=== PATIENT | male | born 1945 | race Caucasian/White ===

== ENCOUNTER 2020-08-13 09:52 | Emergency (ER) | payer MEDICARE, SELFPAY ==
--- NOTE | ~2020-08-13 | XR_ITS ---
EXAMINATION: XR foot RT 2V EXAM DATE: 08/13/2020 10:31 INDICATION: Initial encounter following injury, with pain of the right foot. Heavy object fell on it 2 days ago. Bruising 3rd and 4th digits. TECHNIQUE: Frontal and lateral projections of the right foot. There is no prior study for compariso n. FINDINGS: There are no acute right foot fractures or dislocations identified. There is no subcutaneo us gas. The soft tissue is unremarkable. There are no radiopaque foreign bodies. IMPRESSION: 1. XR foot RT 2V exam without acute osseous findings. Reviewed, dictated and finalized at location A. RGIST/PEDIATRIC PULMONOLOGIST
[2020-08-13 10:05] VITALS: BP 147/87; PULSE 62; RESP 16; TEMP 36.4; O2SAT 95
--- NOTE | 2020-08-13 10:10 | PC.NURSE ---
10:10 - UPON EXAM, ERP AWARE OF PCN REACTION WHEN PATIENT WAS 9 YEARS OLD WELL A FAMILY MEMBER THAT HAD ALLERGY
[2020-08-13] MEDS: ACETAMINOPHEN 500 MG TABLET 1000 MG PO (10:30)
[2020-08-13 10:41] LABS: Basophils Absolute Auto 0.05 K/mm3 (0.00-0.10); Basophils Percent Auto 0.7 % (0.0-1.0); Eosinophils Absolute Auto 0.28 K/mm3 (0.02-0.50); Eosinophils Percent Auto 3.9 % (1.0-6.0); Hematocrit 36.7 % (37.0-46.0); Hemoglobin 12.6 g/dL (12.4-15.3); Immature Granulocyte Absolute 0.03 K/mm3 (0.00-0.00); Immature Granulocyte Percent A 0.4 % (0.0-0.0); Lymphocytes Absolute Auto 1.21 K/mm3 (1.10-4.50); Lymphocytes Percent Auto 16.7 % (18.0-42.0); Mean Corpuscular HGB Conc 34.3 g/dL (32.0-36.0); Mean Corpuscular Hemoglobin 30.6 pg (27.0-31.0); Mean Corpuscular Volume 89.1 fL (78.0-102.0); Mean Platelet Volume 9.5 fl (8.7-11.0); Monocytes Absolute Auto 0.46 K/mm3 (0.10-0.90); Monocytes Percent Auto 6.3 % (2.0-11.0); Neutrophils Absolute Auto 5.2 K/mm3 (1.7-7.2); Platelet Count Result 257 K/mm3 (150-420); Red Blood Count 4.12 M/mm3 (4.70-6.10); Red Cell Distribution Width 13.1 % (11.6-14.4); White Blood Count 7.3 K/mm3 (4.8-10.8)
[2020-08-13] MEDS: TETANUS,DIPHTHERIA,AC PERTUSSIS ADULT 0.5 ML (ADACEL) IM (10:47)
--- NOTE | 2020-08-13 10:47 | ED.LOWEXIN ---
HPI - Extremity Injury (Lower) General Chief Complaint: Extremity Injury, Lower Stated Complaint: smashed two middle toes on R foot Source: patient Mode of arrival: ambulatory Limitations: no limitations History of Present Illness HPI Narrative: this is a 74-year-old gentleman with a history of diabetes, that had boards that fell and directly hit his right foot mainly in his 2nd and 3rd toe causing abrasion bruising and hematoma to the right 2nd and 3rd toe has good range of motion although those limited secondary to some swelling and pain. This occurred approximately 2 days ago, currently there is a good right pedal pulse is there is no swelling in the lower extremity although there is some swelling in his 2nd and 3rd toe on the right with no fever chills no chest pain no shortness of breath no nausea vomiting. MD complaint: foot injury Onset (ago): day(s) Injury: Right: foot ( wounds and bruising) Type of Injury: blunt Place: home Severity: mild Severity scale (1-10): 2 Relieving factors: nothing Exacerbating factors: movement Context: direct blow Related Data Home Medications Medication Instructions Recorded Confirmed amlodipine 10 mg PO DAILY 08/13/20 08/13/20 atorvastatin 80 mg PO DAILY 08/13/20 08/13/20 clopidogrel 75 mg PO DAILY 08/13/20 08/13/20 glimepiride 4 mg PO BID 08/13/20 08/13/20 liraglutide [[employer] 3-Genaro] 0.6 mg SUBCUT DAILY 08/13/20 08/13/20 metformin 1,000 mg PO BID 08/13/20 08/13/20 metoprolol tartrate 100 mg PO DAILY 08/13/20 08/13/20 Allergies Allergy/AdvReac Type Severity Reaction Status Date / Time Penicillins Allergy Itching Verified 08/13/20 10:57 Review of Systems Review of Systems: All systems reviewed & are unremarkable except as noted in HPI and below PMFSH Past Medical History Medical History HTN (hypertension) Peripheral vascular disease Exam Const: General: no acute distress Orientation/consciousness: patient oriented x3 HENMT: Head: normal to inspection Eyes: Conjunctivae: conjunctivae normal Pupils: Equal, round and reactive pupils present EOM: EOMs intact bilaterally Direct Ophthalmoscopy: no photophobia Neck: Neck: normal visual inspection, no lymphadenopathy and no meningeal signs Chest: Chest palpation & inspection: normal inspection of the chest Resp: Effort & Inspection: normal respiratory effort Cardio: Rate: regular rate Rhythm: regular rhythm GI: GI Palp: Yes Soft to palpation Skin: Other: abrasions to anterior right 2nd and 3rd toe with hematoma and bruising with some swelling has a good brisk pedal pulse on the right Neuro: General: patient oriented x3 and moves all extremities Extrem: General: normal to inspection and no pedal edema Psych: Mental Status: mental status grossly normal Course Course Emergency Course: x-rays reviewed with patient showed no fractures will give the patient a dose of IV 1 g of Rocephin and triple antibiotic ointment patient otherwise doing well not complaining of any pain or any discomfort in his lower extremity. Vital Signs Vital signs: Vital Signs Temperature 36.4 C 08/13/20 10:05 Pulse Rate 62 08/13/20 10:05 Respiratory Rate 16 08/13/20 10:05 Blood Pressure 147/87 H 08/13/20 10:05 Pulse Oximetry 95 08/13/20 10:05 Temperature 36.4 C 08/13/20 10:05 Pulse Rate 62 08/13/20 10:05 Respiratory Rate 16 08/13/20 10:05 Blood Pressure 147/87 H 08/13/20 10:05 Pulse Oximetry 95 08/13/20 10:05 MDM - Extremity Injury (Lower) Lab Data Result diagrams: 08/13/20 10:17 08/13/20 10:17 Labs: Lab Results 08/13/20 08/13/20 08/13/20 Range/Units 10:17 10:17 10:36 WBC 7.3 (4.8-10.8) K/mm3 RBC 4.12 L (4.70-6.10) M/mm3 Hgb 12.6 (12.4-15.3) g/dL Hct 36.7 L (37.0-46.0) % MCV 89.1 (78.0-102.0) fL MCH 30.6 (27.0-31.0) pg MCHC 34.3 (32.0-36.0) g/dL RDW 13.1 (11.6-14.
[2020-08-13] MEDS: NEOMYCIN/POLYMYXIN/BACITRACIN OINTMENT PACKET 1 PACKET TOPICAL (10:52)
[2020-08-13 11:01] LABS: Lactic Acid Reflex 1.3 mmol/L (0.4-2.0)
[2020-08-13 11:07] LABS: Alanine Aminotransferase 18 U/L (16-63); Albumin Level 3.8 g/dL (3.4-5.0); Alkaline Phosphatase 77 U/L (46-116); Anion Gap 9 mmol/L (8-16); Aspartate Amino Transferase 13 U/L (15-37); Bilirubin,Total 0.6 mg/dL (0.00-1.00); Blood Urea Nitrogen 24 mg/dL (7-18); Calcium 9.1 mg/dL (8.5-10.1); Carbon Dioxide 30 mmol/L (21-32); Chloride 98 mmol/L (98-108); Estimated Glomerular Filt Rate 41; Glucose 228 mg/dL (70-99); Osmolality Calculated 295 mOsm/kg (285-295); Sodium 137 mmol/L (136-145); Total Protein 7.1 g/dL (6.4-8.2)
[2020-08-13 11:20] VITALS: RESP 16
== END 2020-08-13 11:20 | disposition home or self-care (01) ==
PROVIDERS: Emergency Provider Emergency Medicine
DX: L03.115 Cellulitis of right lower limb (principal); I10 Essential (primary) hypertension; I73.9 Peripheral vascular disease, unspecified
CPT/HCPCS: 36415; 73620; 80053; 83605; 85025; 87040; 90471; 90715; 96365; 99283; 99284; J0696

== ENCOUNTER 2022-03-26 11:36 | Outpatient (CLI) | payer MEDICARE, SELFPAY ==
[2022-03-26 11:51] LABS: Basophils Absolute Auto 0.05 K/mm3 (0.00-0.10); Basophils Percent Auto 0.6 % (0.0-1.0); Eosinophils Percent Auto 2.4 % (1.0-6.0); Hematocrit 36.7 % (37.0-46.0); Hemoglobin 12.4 g/dL (12.4-15.3); Immature Granulocyte Absolute 0.08 K/mm3 (0.00-0.00); Immature Granulocyte Percent A 0.9 % (0.0-0.0); Lymphocytes Absolute Auto 0.95 K/mm3 (1.10-4.50); Lymphocytes Percent Auto 11.2 % (18.0-42.0); Mean Corpuscular HGB Conc 33.8 g/dL (32.0-36.0); Mean Corpuscular Hemoglobin 31.2 pg (27.0-31.0); Mean Corpuscular Volume 92.2 fL (78.0-102.0); Mean Platelet Volume 9.7 fl (8.7-11.0); Monocytes Absolute Auto 0.46 K/mm3 (0.10-0.90); Monocytes Percent Auto 5.4 % (2.0-11.0); Neutrophils Absolute Auto 6.7 K/mm3 (1.7-7.2); Neutrophils Percent Auto 79.5 % (50.0-70.0); Platelet Count Result 225 K/mm3 (150-420); Red Blood Count 3.98 M/mm3 (4.70-6.10); Red Cell Distribution Width 12.7 % (11.6-14.4); White Blood Count 8.5 K/mm3 (4.8-10.8)
[2022-03-26 12:06] LABS: Creatinine Urine 101.51 mg/dL (40-278); MALB Creatinine Ratio 19.3 mg/g (0-30); Microalbumin Urine Random 19.6 mg/L
[2022-03-26 12:53] LABS: Albumin Level 3.7 g/dL (3.4-5.0); Anion Gap 11 mmol/L (8-16); Blood Urea Nitrogen 41 mg/dL (7-18); Calcium 9.1 mg/dL (8.5-10.1); Carbon Dioxide 29 mmol/L (21-32); Chloride 97 mmol/L (98-108); Estimated Glomerular Filt Rate 32; Osmolality Calculated 312 mOsm/kg (285-295); Phosphorus 4.6 mg/dL (2.6-4.7); Potassium 4.2 mmol/L (3.5-5.1); Sodium 137 mmol/L (136-145)
[2022-03-26 13:06] LABS: Glucose 415 mg/dL (70-99)
== END 2022-03-26 11:37 | disposition home or self-care (01) ==
LOC: CHSLAB 11:40
PROVIDERS: PCP Family Medicine; Visit Provider Internal Medicine Nephrology
DX: N18.30 Chronic kidney disease, stage 3 unspecified (principal)
CPT/HCPCS: 36415; 80069; 82043; 85025

== ENCOUNTER 2022-04-27 09:57 | Outpatient (CLI) | payer MEDICARE, SELFPAY ==
[2022-04-27 10:10] LABS: Basophils Absolute Auto 0.06 K/mm3 (0.00-0.10); Basophils Percent Auto 0.7 % (0.0-1.0); Eosinophils Percent Auto 3.6 % (1.0-6.0); Hematocrit 35.7 % (37.0-46.0); Immature Granulocyte Absolute 0.07 K/mm3 (0.00-0.00); Immature Granulocyte Percent A 0.8 % (0.0-0.0); Lymphocytes Absolute Auto 1.14 K/mm3 (1.10-4.50); Lymphocytes Percent Auto 13.6 % (18.0-42.0); Mean Corpuscular HGB Conc 33.6 g/dL (32.0-36.0); Mean Corpuscular Hemoglobin 31.3 pg (27.0-31.0); Mean Corpuscular Volume 93.2 fL (78.0-102.0); Mean Platelet Volume 9.3 fl (8.7-11.0); Monocytes Percent Auto 7.2 % (2.0-11.0); Neutrophils Absolute Auto 6.2 K/mm3 (1.7-7.2); Neutrophils Percent Auto 74.1 % (50.0-70.0); Platelet Count Result 285 K/mm3 (150-420); Red Blood Count 3.83 M/mm3 (4.70-6.10); Red Cell Distribution Width 13.3 % (11.6-14.4); White Blood Count 8.4 K/mm3 (4.8-10.8)
[2022-04-27 10:18] LABS: Creatinine Urine 105.01 mg/dL (40-278); MALB Creatinine Ratio 12.3 mg/g (0-30); Microalbumin Urine Random < 13.0 mg/L
[2022-04-27 10:49] LABS: Albumin Level 3.5 g/dL (3.4-5.0); Anion Gap 8 mmol/L (8-16); Blood Urea Nitrogen 49 mg/dL (7-18); Calcium 8.8 mg/dL (8.5-10.1); Carbon Dioxide 30 mmol/L (21-32); Chloride 102 mmol/L (98-108); Estimated Glomerular Filt Rate 31; Glucose 208 mg/dL (70-99); Osmolality Calculated 309 mOsm/kg (285-295); Phosphorus 5.2 mg/dL (2.6-4.7); Potassium 3.9 mmol/L (3.5-5.1); Sodium 140 mmol/L (136-145)
== END 2022-04-27 09:58 | disposition home or self-care (01) ==
LOC: CHSLAB 09:59
PROVIDERS: PCP Family Medicine; Visit Provider Internal Medicine Nephrology
DX: N18.30 Chronic kidney disease, stage 3 unspecified (principal)
CPT/HCPCS: 36415; 80069; 82043; 85025

== ENCOUNTER 2022-09-23 14:46 | Emergency (ER) | payer MEDICARE, SELFPAY ==
[2022-09-23 14:49] VITALS: BP 159/64; PULSE 76; RESP 18; TEMP 37.1; O2SAT 100
--- NOTE | 2022-09-23 14:53 | ED.GENADULT ---
HPI - General Adult General Chief complaint: Upper Respiratory Infection Stated complaint: upper resp Time Seen by Provider: 09/23/22 14:48 History of Present Illness HPI narrative: Ady is a 76M with a PMH of PAD, DMII, and HTN that presented to the ED with a couple days of a sore throat, and fatigue. No fevers, chills, N/V, CP or dyspnea. Related Data Home Medications Medication Instructions Recorded Confirmed amlodipine 10 mg tablet 5 mg PO DAILY 08/13/20 09/23/22 atorvastatin 80 mg tablet 80 mg PO DAILY 08/13/20 09/23/22 clopidogrel 75 mg tablet 75 mg PO DAILY 08/13/20 09/23/22 glimepiride 4 mg tablet 4 mg PO BID 08/13/20 09/23/22 liraglutide 0.6 mg/0.1 mL (18 mg/3 1.8 mg subcut DAILY 08/13/20 09/23/22 mL) subcutaneous pen injector ([employer] 3-Genaro) metoprolol tartrate 100 mg tablet 100 mg PO DAILY 08/13/20 09/23/22 albuterol sulfate 90 mcg/actuation 2 inh inhalation QID PRN sob 09/23/22 09/23/22 aerosol inhaler finasteride 5 mg tablet 5 mg PO DAILY 09/23/22 09/23/22 furosemide 20 mg tablet 20 mg PO DAILY 09/23/22 09/23/22 losartan 25 mg tablet 25 mg PO DAILY 09/23/22 09/23/22 Allergies Allergy/AdvReac Type Severity Reaction Status Date / Time lisinopril Allergy Cough Verified 09/23/22 14:59 Penicillins Allergy Itching Verified 09/23/22 14:59 Review of Systems Review of Systems: All systems reviewed & are unremarkable except as noted in HPI and below PMFSH Past Medical History Medical History HTN (hypertension) Peripheral vascular disease Exam Const: General: healthy appearing and no acute distress Nutritional Appearance: well nourished Orientation/consciousness: patient oriented x3 HENMT: Head: normal to inspection Ears: external ears normal Face/Nose/Sinus: Normal external nose present Eyes: Conjunctivae: conjunctivae normal Pupils: Equal, round and reactive pupils present EOM: EOMs intact bilaterally Neck: Neck: normal visual inspection Chest: Chest palpation & inspection: normal inspection of the chest Resp: Effort & Inspection: normal respiratory effort Auscultation: clear to auscultation bilaterally Cardio: Rate: regular rate Rhythm: regular rhythm Heart sounds: no murmurs GI: Inspection: non-distended GI Palp: Yes Soft to palpation and No Tenderness to palpation present (GI) Back/Spine/Pelvis: Back: no CVA tenderness Skin: General skin exam: normal color Rashes: no rashes Neuro: General: patient oriented x3 and moves all extremities Cranial nerves: Yes Nystagmus not present Speech: normal speech Extrem: General: normal to inspection Psych: Mental Status: mental status grossly normal Course Course Emergency Course: +COVID Vital Signs Vital signs: Vital Signs Temperature 98.7 F 09/23/22 14:49 Pulse Rate 76 09/23/22 14:49 Respiratory Rate 18 09/23/22 14:49 Blood Pressure 159/64 H 09/23/22 14:49 Pulse Oximetry 100 09/23/22 14:49 Oxygen Delivery Room Air 09/23/22 14:49 Temperature 98.7 F 09/23/22 14:49 Pulse Rate 76 09/23/22 14:49 Respiratory Rate 18 09/23/22 14:49 Blood Pressure 159/64 H 09/23/22 14:49 Pulse Oximetry 98 09/23/22 14:57 Oxygen Delivery Room Air 09/23/22 14:57 Medical Decision Making Vital Signs Vital Signs: Vital Signs Temperature 98.7 F 09/23/22 14:49 Pulse Rate 76 09/23/22 14:49 Respiratory Rate 18 09/23/22 14:49 Blood Pressure 159/64 H 09/23/22 14:49 Pulse Oximetry 100 09/23/22 14:49 Oxygen Delivery Room Air 09/23/22 14:49 Temperature 98.7 F 09/23/22 14:49 Pulse Rate 76 09/23/22 14:49 Respiratory Rate 18 09/23/22 14:49 Blood Pressure 159/64 H 09/23/22 14:49 Pulse Oximetry 98 09/23/22 14:57 Oxygen Delivery Room Air 09/23/22 14:57 Lab Data Labs: Lab Results 09/23/22 09/23/22 Range/Units 14:49 14:49 Influenza A (RT-PCR) Negative (Negative) Influenza B (RT-PCR) Negative
[2022-09-23 14:57] VITALS: O2SAT 98
[2022-09-23 15:38] LABS: Strep Group A RT-PCR Not Detected (Negative)
[2022-09-23 15:52] LABS: Influenza A QL RT-PCR Negative (Negative); Influenza B QL RT-PCR Negative (Negative); SARS-CoV-2 RNA PCR Positive (Negative)
[2022-09-23 15:53] LABS: RSV RNA, RT-PCR Negative (Negative)
[2022-09-23 16:01] VITALS: BP 177/67; PULSE 78; RESP 20; TEMP 36.8; O2SAT 96
== END 2022-09-23 16:06 | disposition home or self-care (01) ==
PROVIDERS: Emergency Provider Family Medicine; PCP Family Medicine
DX: U07.1 COVID-19 (principal); E11.9 Type 2 diabetes mellitus without complications; I10 Essential (primary) hypertension
CPT/HCPCS: 87637; 87651; 99283

== ENCOUNTER 2022-12-26 17:52 | Outpatient (CLI) | payer MEDICARE, SELFPAY ==
[2022-12-26 18:04] LABS: Basophils Absolute Auto 0.06 K/mm3 (0.00-0.10); Basophils Percent Auto 0.8 % (0.0-1.0); Eosinophils Absolute Auto 0.26 K/mm3 (0.02-0.50); Eosinophils Percent Auto 3.5 % (1.0-6.0); Hematocrit 41.2 % (37.0-46.0); Hemoglobin 13.8 g/dL (12.4-15.3); Immature Granulocyte Absolute 0.01 K/mm3 (0.00-0.00); Immature Granulocyte Percent A 0.1 % (0.0-0.0); Lymphocytes Absolute Auto 1.52 K/mm3 (1.10-4.50); Lymphocytes Percent Auto 20.2 % (18.0-42.0); Mean Corpuscular HGB Conc 33.5 g/dL (32.0-36.0); Mean Corpuscular Hemoglobin 31.1 pg (27.0-31.0); Mean Corpuscular Volume 92.8 fL (78.0-102.0); Mean Platelet Volume 9.3 fl (8.7-11.0); Monocytes Absolute Auto 0.43 K/mm3 (0.10-0.90); Monocytes Percent Auto 5.7 % (2.0-11.0); Neutrophils Absolute Auto 5.2 K/mm3 (1.7-7.2); Neutrophils Percent Auto 69.7 % (50.0-70.0); Platelet Count Result 238 K/mm3 (150-420); Red Blood Count 4.44 M/mm3 (4.70-6.10); Red Cell Distribution Width 13.3 % (11.6-14.4); White Blood Count 7.5 K/mm3 (4.8-10.8)
[2022-12-26 18:14] LABS: Creatinine Urine 24.93 mg/dL (40-278); MALB Creatinine Ratio 52.1 mg/g (0-30); Microalbumin Urine Random < 13.0 mg/L
[2022-12-26 18:57] LABS: Anion Gap 12 mmol/L (8-16); Blood Urea Nitrogen 44 mg/dL (7-18); Carbon Dioxide 27 mmol/L (21-32); Chloride 102 mmol/L (98-108); Estimated Glomerular Filt Rate 42; Glucose 154 mg/dL (70-99); Osmolality Calculated 306 mOsm/kg (285-295); Phosphorus 4.2 mg/dL (2.6-4.7); Potassium 3.7 mmol/L (3.5-5.1); Sodium 141 mmol/L (136-145)
== END 2022-12-26 17:53 | disposition home or self-care (01) ==
LOC: CHSLAB 17:55
PROVIDERS: PCP Family Medicine
DX: N18.30 Chronic kidney disease, stage 3 unspecified (principal)
CPT/HCPCS: 36415; 80069; 82043; 85025

== ENCOUNTER 2024-05-15 13:18 | Outpatient (CLI) | payer MEDICARE, SELFPAY ==
--- NOTE | ~2024-05-15 | PE_ITS ---
EXAMINATION: PET_PETPSMAST_PT DATE: 05/15/2024 15:34 INDICATION: Malignant neoplasm of prostate. TECHNIQUE: 5.092 mCi of Ga-68 gozetotide was administered intravenously. Low dose computed tomography (CT) images were acquired from the base of the brain to the proximal thighs for attenuation correcti on and anatomic localization. Automated exposure control was employed. Dose-length product (DLP) was 905 mGy-cm. Positron emission tomography (PET) images were acquired in the same distribution. COMPARISON: None FINDINGS: Head/neck: There are no pathologically enlarged lymph nodes. Chest: There is mild emphysema. There is mild atelectasis bilaterally. No pleural effusion. There is a calcified pleural plaque on the left. The heart size is normal. There are coronary artery calcifica tions. There are changes of coronary artery bypass grafting. No pericardial effusion. There is mild b ilateral gynecomastia. Abdomen/pelvis/proximal thighs: The liver, gallbladder, spleen, and pancreas are normal. There are ma sses in the adrenal glands measuring up to 17 mm on the left measuring low attenuation, likely adenom as. The kidneys are normal. The prostate is mildly enlarged. There is increased activity in the prost ate with maximum SUV of 13.7. There is diffuse bladder wall thickening, likely secondary to chronic o utlet obstruction. There are no dilated loops of bowel. There is a large volume of stool in the colon . There is calcified atherosclerosis of the aorta and many of the other arteries. There is a stent in right superficial femoral artery. There is a stent in left common and external iliac arteries. There are no pathologically enlarged lymph nodes. There is no free intraperitoneal fluid. There is a large left hydrocele. There is no osseous malignancy. IMPRESSION: 1. Mildly enlarged prostate with increased activity, consistent with primary malignancy. No evidence of metastatic disease. 2. Large left hydrocele. Reviewed, dictated and finalized at location A. CAL LAB TECHNOLOGIST IMPRESSION: 1. Mildly enlarged prostate with increased activity, consistent with primary ma lignancy. No evidence of metastatic disease. 2. Large left hydrocele.
== END 2024-05-15 13:19 | disposition home or self-care (01) ==
PROVIDERS: PCP Family Medicine; Visit Provider Urology
DX: C61 Malignant neoplasm of prostate (principal); N40.0 Benign prostatic hyperplasia without lower urinary tract symptoms; N43.3 Hydrocele, unspecified
CPT/HCPCS: 78815; A9596